=== PATIENT | female | born 1975 | race African-American/Black ===

== ENCOUNTER 2018-04-27 20:54 | Emergency (ER) | payer OTHER ==
[~2018-04-27] VITALS: Ht 165.1 cm; Wt 99.8 kg
[2018-04-27] MEDS ORDERED: PROMETHAZINE/C118 ML PO (22:33)
[2018-04-27] MEDS ORDERED: PROVENTIL HFA6.7 G1 INH (22:33)
[2018-04-27] MEDS ORDERED: PREDNISONE 20 M20 MG PO (22:33)
[2018-04-27 22:57] VITALS: BP 136/89
== END 2018-04-27 22:58 | disposition home or self-care (01) ==
LOC: ER 20:54
DX: J20.9 Acute bronchitis, unspecified (principal); Z88.0 Allergy status to penicillin; Z88.8 Allergy status to other drugs, medicaments and biological substances

== ENCOUNTER 2018-10-22 18:12 | Emergency (ER) | payer OTHER ==
[~2018-10-22] VITALS: Ht 165.1 cm; Wt 89.4 kg
[~2018-10-22 18:12] MED LIST: GLUCOPHAGE1000 MG PO; LIPITOR 10 MG10 M1 PO; NORVASC5 MG PO; PREDNISONE 20 M20 MG PO; PROMETH-CODEIN 65 ML PO; PROMETHAZINE/C118 ML PO; PROVENTIL HFA6.7 G1 INH; TESSALON PERLE100 MG PO
[2018-10-22] MEDS ORDERED: NORFLEX100 MG PO (19:37)
[2018-10-22] MEDS ORDERED: TESSALON PERLE100 MG PO (19:40)
[2018-10-22 19:54] VITALS: BP 189/97
== END 2018-10-22 19:55 | disposition home or self-care (01) ==
LOC: ER 18:12
DX: S16.1XXA Strain of muscle, fascia and tendon at neck level, initial encounter (principal); S46.811A Strain of other muscles, fascia and tendons at shoulder and upper arm level, right arm, initial encounter; J06.9 Acute upper respiratory infection, unspecified; I10 Essential (primary) hypertension; E10.9 Type 1 diabetes mellitus without complications; V89.2XXA Person injured in unspecified motor-vehicle accident, traffic, initial encounter; Y93.89 Activity, other specified; Y92.89 Other specified places as the place of occurrence of the external cause; Y99.8 Other external cause status

== ENCOUNTER 2018-11-18 16:08 | Emergency (ER) | payer OTHER ==
[~2018-11-18] VITALS: Ht 165.1 cm; Wt 81.7 kg
[~2018-11-18 16:08] MED LIST changes: +NORFLEX100 MG PO
[2018-11-18 16:29] VITALS: BP 189/107
[2018-11-18] MEDS ORDERED: NOVOLOG100 UNIT/1 SUBQ (16:35)
[2018-11-18] MEDS ORDERED: LANTUS100 UNIT/M SUBQ (16:36)
[2018-11-18] MEDS ORDERED: NAPROSYN500 MG PO (17:20)
[2018-11-18] MEDS ORDERED: NORFLEX100 MG PO (17:20)
== END 2018-11-18 18:06 | disposition home or self-care (01) ==
LOC: ER 16:08
DX: S16.1XXA Strain of muscle, fascia and tendon at neck level, initial encounter (principal); S29.012A Strain of muscle and tendon of back wall of thorax, initial encounter; E10.9 Type 1 diabetes mellitus without complications; I10 Essential (primary) hypertension; Z88.0 Allergy status to penicillin; Z88.6 Allergy status to analgesic agent; V89.2XXA Person injured in unspecified motor-vehicle accident, traffic, initial encounter; Y93.89 Activity, other specified; Y92.89 Other specified places as the place of occurrence of the external cause; Y99.8 Other external cause status

== ENCOUNTER 2018-12-23 19:34 | Emergency (ER) | payer OTHER ==
[~2018-12-23] VITALS: Ht 165.1 cm; Wt 105.2 kg
[~2018-12-23 19:34] MED LIST changes: +LANTUS100 UNIT/M SUBQ; +NAPROSYN500 MG PO; +NOVOLOG100 UNIT/1 SUBQ
[2018-12-23 20:38] LABS: HEMATOCRIT 43.3 % (37.0-47.0); HEMOGLOBIN 14.4 gm/dL (12.0-15.0); MCH 27.9 pg (26.0-34.0); MCHC 33.2 g/dL (28.0-37.0); RBC 5.16 mil/uL (4.20-5.00); RDW 13.5 % (10.5-14.5); WBC 7.7 thou/uL (4.0-11.0)
[2018-12-23 20:44] LABS: ANION GAP 9 mmol/L (7-16); BUN 11 mg/dL (7-18); CALCIUM 9.1 mg/dL (8.5-10.1); CHLORIDE 99 mmol/L (98-107); CO2 29 mmol/L (21-32); CREATININE 0.9 mg/dL (0.6-1.0); GLUCOSE 322 mg/dL (74-106); POTASSIUM 3.2 mmol/L (3.5-5.1); SODIUM 137 mmol/L (136-145)
[2018-12-23 20:54] LABS: TROPONIN-I <0.06 ng/mL (<0.06)
[2018-12-23] MEDS ORDERED: NORCO 10-325 T1 EACH PO (22:08)
[2018-12-23] MEDS ORDERED: CYCLOBENZAPRINE5 MG PO (22:08)
[2018-12-23 22:39] VITALS: BP 155/80
--- NOTE | 2018-12-24 08:14 | EKG ---
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: : 1975 Requested By: Nestor Wills Order Number: [id number] MD: Jose Armando Overton Measurements Intervals [place] Rate: 76 P: 29 ND: 163 QRS: 13 QRSD: 87 T: 73 QT: 422 QTc: 475 Interpretive Statements Sinus rhythm Borderline T wave abnormalities Baseline wander in lead(s) I No previous ECG available for comparison Electronically Signed On 12-24-2018 8:13:57 MEDICAL RECORDS TECH by Jose Armando Overton [email or web address] <ELECTRONICALLY SIGNED> By: Jose Armando Overton MD, [facility] 12/24/18 0813 56 56 Jose Armando Overton MD, FACC /EPI
== END 2018-12-23 22:40 | disposition home or self-care (01) ==
LOC: ER 19:34
PROVIDERS: Physician Assistant
DX: R07.89 Other chest pain (principal); M25.571 Pain in right ankle and joints of right foot; I10 Essential (primary) hypertension; E10.9 Type 1 diabetes mellitus without complications; Z88.6 Allergy status to analgesic agent; Z88.0 Allergy status to penicillin; V43.52XA Car driver injured in collision with other type car in traffic accident, initial encounter; Y92.410 Unspecified street and highway as the place of occurrence of the external cause; Y93.89 Activity, other specified; Y99.8 Other external cause status

== ENCOUNTER 2018-12-27 20:03 | Emergency (ER) | payer OTHER ==
[~2018-12-27] VITALS: Ht 165.1 cm; Wt 105.2 kg
[~2018-12-27 20:03] MED LIST changes: +CYCLOBENZAPRINE5 MG PO; +NORCO 10-325 T1 EACH PO
[2018-12-27 22:08] LABS: ANION GAP 10 mmol/L (7-16); BUN 11 mg/dL (7-18); CALCIUM 9.2 mg/dL (8.5-10.1); CHLORIDE 96 mmol/L (98-107); CO2 28 mmol/L (21-32); CREATININE 0.9 mg/dL (0.6-1.0); GLUCOSE 355 mg/dL (74-106); POTASSIUM 4.4 mmol/L (3.5-5.1); SODIUM 134 mmol/L (136-145)
[2018-12-27 22:17] LABS: SGOT 34 U/L (15-37); SGPT 12 U/L (30-65); TOTAL BILIRUBIN 0.5 mg/dL (<0.1-1.0); TOTAL PROTEIN 8.5 g/dL (6.4-8.2); TROPONIN-I <0.06 ng/mL (<0.06)
[2018-12-27 22:24] LABS: ALBUMIN 3.2 g/dL (3.4-5.0); MAGNESIUM 1.5 mg/dL (1.8-2.4)
[2018-12-27 22:51] LABS: ABSOLUTE NEUTROPHILS 5.1 thou/uL (1.4-8.2); BASOPHILS 1.5 % (0.0-2.0); EOSINOPHILS 2.5 % (0.0-3.0); HEMATOCRIT 39.5 % (37.0-47.0); HEMOGLOBIN 13.1 gm/dL (12.0-15.0); LYMPHOCYTES 36.1 % (24.0-44.0); MCH 27.5 pg (26.0-34.0); MCV 83.3 fL (80.0-100.0); MONOCYTES 6.3 % (1.0-8.0); PLATELET COUNT 284 thou/uL (150-400); POLYS 53.6 % (36.0-66.0); RBC 4.75 mil/uL (4.20-5.00); RDW 13.7 % (10.5-14.5); WBC 9.4 thou/uL (4.0-11.0)
[2018-12-28] MEDS ORDERED: PROAIR HFA8.5 GM INH (01:33)
[2018-12-28] MEDS ORDERED: LEVAQUIN 750 M750 MG PO (01:33)
[2018-12-28] MEDS ORDERED: NORCO 5-325 TA1 EACH PO (01:33)
[2018-12-28 01:55] VITALS: BP 163/91
--- NOTE | 2018-12-28 09:09 | EKG ---
[address] [place] [address] ELECTROCARDIOGRAM REPORT Name: CAITLIN AKBAROLLE Room #: DEP Paula#: [id number] ������������������ Admission: 12/27/18 ������������������ Attend Phys: Discharge: 12/28/18 ������������������ Date of : 71 Report #: [id number] ����������������������������������������������������������������� [id number] THIS REPORT FOR: //name// [facility] ED Test Date: 2018-12-27 Test Time: 20:42:42 Pat Name: MARILYN AKBAR Department: Room: Gender: F Radio Director: AVE : 1975 Requested By: Itz Brownlee Order Number: [id number] MD: Jose Armando Overton Measurements Intervals [place] Rate: 92 P: 4 AL: 177 QRS: 7 QRSD: 84 T: -31 QT: 393 QTc: 487 Interpretive Statements Sinus rhythm Small inferior Q waves Poor R wave progression Compared to ECG 12/23/2018 19:57:59 No significant change was found Electronically Signed On 12-28-2018 9:09:07 MEDICAL ORDERLY by Jose Armando Overton [email or web address] ��������������������������������������������� <ELECTRONICALLY SIGNED> ���������������������������������������� By: Jose Armando Overton MD, [facility] ��������������������������������������������� 12/28/18908 41 41 Jose Armando Overton MD, FACC /EPI
== END 2018-12-28 01:57 | disposition home or self-care (01) ==
LOC: ER 20:03
PROVIDERS: Emergency Medicine
DX: S20.211A Contusion of right front wall of thorax, initial encounter (principal); J18.9 Pneumonia, unspecified organism; E10.9 Type 1 diabetes mellitus without complications; I10 Essential (primary) hypertension; Z88.0 Allergy status to penicillin; Z88.6 Allergy status to analgesic agent; V89.2XXA Person injured in unspecified motor-vehicle accident, traffic, initial encounter; Y93.89 Activity, other specified; Y92.89 Other specified places as the place of occurrence of the external cause; Y99.8 Other external cause status

== ENCOUNTER 2019-02-02 18:21 | Emergency (ER) | payer OTHER ==
[~2019-02-02] VITALS: Ht 165.1 cm; Wt 102.5 kg
[~2019-02-02 18:21] MED LIST changes: +LEVAQUIN 750 M750 MG PO; +NORCO 5-325 TA1 EACH PO; +PROAIR HFA8.5 GM INH
[2019-02-02 19:51] LABS: ABSOLUTE NEUTROPHILS 3.7 thou/uL (1.4-8.2); BASOPHILS 1.7 % (0.0-2.0); EOSINOPHILS 1.8 % (0.0-3.0); HEMATOCRIT 38.7 % (37.0-47.0); HEMOGLOBIN 12.9 gm/dL (12.0-15.0); LYMPHOCYTES 44.3 % (24.0-44.0); MCH 27.6 pg (26.0-34.0); MCHC 33.3 g/dL (28.0-37.0); MCV 82.8 fL (80.0-100.0); MONOCYTES 7.3 % (1.0-8.0); PLATELET COUNT 320 thou/uL (150-400); POLYS 44.9 % (36.0-66.0); RBC 4.67 mil/uL (4.20-5.00); RDW 13.7 % (10.5-14.5); WBC 8.1 thou/uL (4.0-11.0)
[2019-02-02 20:00] LABS: ANION GAP 6 mmol/L (7-16); BUN 13 mg/dL (7-18); CALCIUM 9.2 mg/dL (8.5-10.1); CHLORIDE 101 mmol/L (98-107); CO2 27 mmol/L (21-32); CREATININE 0.9 mg/dL (0.6-1.0); GLUCOSE 301 mg/dL (74-106); POTASSIUM 3.8 mmol/L (3.5-5.1); SODIUM 134 mmol/L (136-145)
[2019-02-02 20:09] LABS: ALBUMIN 3.4 g/dL (3.4-5.0); MAGNESIUM 1.6 mg/dL (1.8-2.4); SGOT 13 U/L (15-37); SGPT 13 U/L (30-65); TOTAL BILIRUBIN 0.3 mg/dL (<0.1-1.0); TOTAL PROTEIN 7.7 g/dL (6.4-8.2); TROPONIN-I <0.06 ng/mL (<0.06)
[2019-02-02] MEDS ORDERED: DOXYCYCLINE 10100 MG PO (20:22)
[2019-02-02 21:10] LABS: URINE BILIRUBIN NEGATIVE (Negative); URINE BLOOD NEGATIVE (Negative); URINE CLARITY CLEAR; URINE COLOR YELLOW; URINE GLUCOSE-RANDOM* 2+ (Negative); URINE KETONES NEGATIVE (Negative); URINE LEUKOCYTES-REFLEX NEGATIVE (Negative); URINE NITRITE-REFLEX NEGATIVE (Negative); URINE PROTEIN (DIPSTICK) 1+ (Negative); URINE SPECIFIC GRAVITY 1.025 (1.005-1.035)
[2019-02-02 21:19] LABS: BACTERIA-REFLEX None Seen /HPF (None Seen); CASTS None Seen /LPF (None Seen); CRYSTALS None Seen /LPF (None Seen); MUCUS >6 Heavy strn/LPF (None Seen); SQUAMOUS >10 Many /LPF (0-3); URINE RBC 0-2 Rare /HPF (0-2); URINE WBC-REFLEX 0-5 Rare /HPF (0-5)
[2019-02-02 21:31] VITALS: BP 175/103
--- NOTE | 2019-02-03 08:41 | EKG ---
[facility] [place] [address] ELECTROCARDIOGRAM REPORT Name: CAITLIN AKBAROLLE Room #: DEP [facility] [id number] ������������������ Admission: 02/02/19 ������������������ Attend Phys: Discharge: 02/02/19 ������������������ Date of : 71 Report #: [id number] ����������������������������������������������������������������� [id number] THIS REPORT FOR: //name// 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 : 1975 Requested By: Leroy Marina Order Number: [id number] MD: Jose Armando Overton Measurements Intervals [place] Rate: 82 P: 20 [place]: 155 QRS: 7 QRSD: 83 T: -5 QT: 411 QTc: 480 Interpretive Statements Sinus rhythm Poor R wave progression Nonspecific ST and T wave abnormality Possible inferior infarct, old Compared to ECG 12/27/2018 20:42:42 no significant change was found Electronically Signed On 02-03-2019 8:41:31 CDT by Jose Armando Overton [email or web address] ��������������������������������������������� <ELECTRONICALLY SIGNED> ���������������������������������������� By: Jose Armando Overton MD, [facility] ��������������������������������������������� 02/03/19 0841 1904 1904 Jose Armando Overton MD, [facility] /EPI
== END 2019-02-02 21:34 | disposition home or self-care (01) ==
LOC: ER 18:21
PROVIDERS: Emergency Medicine
DX: J20.9 Acute bronchitis, unspecified (principal); E11.65 Type 2 diabetes mellitus with hyperglycemia; I10 Essential (primary) hypertension; Z88.0 Allergy status to penicillin; Z88.6 Allergy status to analgesic agent; Z77.22 Contact with and (suspected) exposure to environmental tobacco smoke (acute) (chronic)

== ENCOUNTER 2019-02-25 18:16 | Emergency (ER) | payer OTHER ==
[~2019-02-25] VITALS: Ht 165.1 cm; Wt 99.3 kg
[~2019-02-25 18:16] MED LIST changes: +DOXYCYCLINE 10100 MG PO
[2019-02-25] MEDS ORDERED: ZESTRIL10 MG PO (19:41)
[2019-02-25] MEDS ORDERED: HYDROCHLOROTHIA25 M2 PO (19:41)
[2019-02-25] MEDS ORDERED: CEFDINIR300 MG PO (20:40)
[2019-02-25] MEDS ORDERED: PROMETH-CODEIN 65 ML PO (20:40)
[2019-02-25 20:44] VITALS: BP 219/123
== END 2019-02-25 20:56 | disposition home or self-care (01) ==
LOC: ER 18:16
DX: J40 Bronchitis, not specified as acute or chronic (principal); H66.92 Otitis media, unspecified, left ear; E10.9 Type 1 diabetes mellitus without complications; I10 Essential (primary) hypertension; Z77.22 Contact with and (suspected) exposure to environmental tobacco smoke (acute) (chronic); Z88.0 Allergy status to penicillin; Z88.6 Allergy status to analgesic agent

== ENCOUNTER 2019-04-02 12:45 | Emergency (ER) | payer OTHER ==
[~2019-04-02] VITALS: Ht 165.1 cm; Wt 103.0 kg
[~2019-04-02 12:45] MED LIST changes: +CEFDINIR300 MG PO; +HYDROCHLOROTHIA25 M2 PO; +ZESTRIL10 MG PO
[2019-04-02] MEDS ORDERED: CEPACOL SORE T1 EAC8 PO (13:50)
[2019-04-02] MEDS ORDERED: CLEOCIN HCL150 MG PO (13:50)
[2019-04-02 14:04] VITALS: BP 177/106
== END 2019-04-02 14:05 | disposition home or self-care (01) ==
LOC: ER 12:45
DX: J03.90 Acute tonsillitis, unspecified (principal); E10.9 Type 1 diabetes mellitus without complications; I10 Essential (primary) hypertension; Z77.22 Contact with and (suspected) exposure to environmental tobacco smoke (acute) (chronic); Z88.0 Allergy status to penicillin; Z88.6 Allergy status to analgesic agent

== ENCOUNTER 2019-05-06 02:08 | Emergency (ER) | payer OTHER ==
[~2019-05-06] VITALS: Ht 165.1 cm; Wt 100.7 kg
[~2019-05-06 02:08] MED LIST changes: +CEPACOL SORE T1 EAC8 PO; +CLEOCIN HCL150 MG PO
[2019-05-06] MEDS ORDERED: ZPAK PO (03:22)
[2019-05-06] MEDS ORDERED: NYAMYC15 GM TOP (03:22)
[2019-05-06 03:46] VITALS: BP 200/110
== END 2019-05-06 03:50 | disposition home or self-care (01) ==
LOC: ER 02:08
DX: J04.0 Acute laryngitis (principal); J20.9 Acute bronchitis, unspecified; B37.2 Candidiasis of skin and nail; E10.9 Type 1 diabetes mellitus without complications; I10 Essential (primary) hypertension; Z88.0 Allergy status to penicillin; Z88.6 Allergy status to analgesic agent; Z77.22 Contact with and (suspected) exposure to environmental tobacco smoke (acute) (chronic)

== ENCOUNTER 2019-05-24 08:36 | Emergency (ER) | payer OTHER ==
[~2019-05-24] VITALS: Ht 165.1 cm; Wt 100.7 kg
[~2019-05-24 08:36] MED LIST changes: +NYAMYC15 GM TOP; +ZPAK PO
[2019-05-24] MEDS ORDERED: TRAMADOL 50 MG50 MG PO (10:12)
[2019-05-24] MEDS ORDERED: ACETAMINOPHEN-1 EAC1 PO (10:21)
[2019-05-24 10:30] VITALS: BP 181/86
== END 2019-05-24 10:30 | disposition home or self-care (01) ==
LOC: ER 08:36
DX: S93.491A Sprain of other ligament of right ankle, initial encounter (principal); S63.591A Other specified sprain of right wrist, initial encounter; M25.561 Pain in right knee; E10.9 Type 1 diabetes mellitus without complications; I10 Essential (primary) hypertension; Z77.22 Contact with and (suspected) exposure to environmental tobacco smoke (acute) (chronic); Z88.6 Allergy status to analgesic agent; Z88.0 Allergy status to penicillin; W01.0XXA Fall on same level from slipping, tripping and stumbling without subsequent striking against object, initial encounter; Y92.009 Unspecified place in unspecified non-institutional (private) residence as the place of occurrence of the external cause; Y93.89 Activity, other specified; Y99.8 Other external cause status

== ENCOUNTER 2019-10-20 22:53 | Emergency (ER) | payer OTHER ==
[~2019-10-20] VITALS: Ht 165.1 cm; Wt 100.2 kg
[~2019-10-20 22:53] MED LIST changes: +ACETAMINOPHEN-1 EAC1 PO; +TRAMADOL 50 MG50 MG PO
[2019-10-20 22:54] VITALS: BP 182/102
[2019-10-20] MEDS ORDERED: PREDNISONE 20 M20 MG PO (23:59)
== END 2019-10-21 00:04 | disposition home or self-care (01) ==
LOC: ER 22:53
DX: J45.901 Unspecified asthma with (acute) exacerbation (principal); J06.9 Acute upper respiratory infection, unspecified; E10.9 Type 1 diabetes mellitus without complications; I10 Essential (primary) hypertension; Z88.6 Allergy status to analgesic agent; Z88.0 Allergy status to penicillin; Z79.899 Other long term (current) drug therapy; Z79.4 Long term (current) use of insulin

== ENCOUNTER 2020-06-16 16:31 | Emergency (ER) | payer OTHER ==
[~2020-06-16] VITALS: Ht 162.6 cm; Wt 100.2 kg
[2020-06-16] MEDS ORDERED: NORCO 5-325 TA1 EAC2 PO (19:23)
[2020-06-16 19:43] VITALS: BP 191/97
== END 2020-06-16 19:36 | disposition home or self-care (01) ==
LOC: ER 16:31
DX: S01.81XA Laceration without foreign body of other part of head, initial encounter (principal); M25.561 Pain in right knee; I10 Essential (primary) hypertension; E10.9 Type 1 diabetes mellitus without complications; Z79.4 Long term (current) use of insulin; Z79.899 Other long term (current) drug therapy; Z88.0 Allergy status to penicillin; Z88.6 Allergy status to analgesic agent; Z88.8 Allergy status to other drugs, medicaments and biological substances; W10.1XXA Fall (on)(from) sidewalk curb, initial encounter; Y93.89 Activity, other specified; Y92.89 Other specified places as the place of occurrence of the external cause; Y99.8 Other external cause status

== ENCOUNTER 2020-06-25 02:18 | Emergency (ER) | payer OTHER ==
[~2020-06-25] VITALS: Ht 162.6 cm; Wt 96.2 kg
[~2020-06-25 02:18] MED LIST changes: +NORCO 5-325 TA1 EAC2 PO
[2020-06-25 03:54] LABS: ABSOLUTE NEUTROPHILS 4.7 thou/uL (1.4-8.2); BASOPHILS 1.4 % (0.0-2.0); EOSINOPHILS 3.7 % (0.0-3.0); HEMATOCRIT 41.2 % (37.0-47.0); HEMOGLOBIN 13.9 gm/dL (12.0-15.0); LYMPHOCYTES 38.6 % (24.0-44.0); MCH 28.2 pg (26.0-34.0); MCHC 33.6 g/dL (28.0-37.0); MONOCYTES 6.2 % (1.0-8.0); PLATELET COUNT 318 thou/uL (150-400); POLYS 50.1 % (36.0-66.0); RBC 4.91 mil/uL (4.20-5.00); RDW 13.8 % (10.5-14.5); WBC 9.5 thou/uL (4.0-11.0)
[2020-06-25 03:56] LABS: ANION GAP 8 mmol/L (7-16); BUN 12 mg/dL (7-18); CALCIUM 8.8 mg/dL (8.5-10.1); CHLORIDE 102 mmol/L (98-107); CO2 28 mmol/L (21-32); CREATININE 1.1 mg/dL (0.6-1.0); GLUCOSE 308 mg/dL (74-106); POTASSIUM 3.7 mmol/L (3.5-5.1); SODIUM 138 mmol/L (136-145)
[2020-06-25 04:06] LABS: ALBUMIN 3.3 g/dL (3.4-5.0); SGOT 8 U/L (15-37); SGPT 12 U/L (30-65); TOTAL BILIRUBIN 0.3 mg/dL (0.2-1.0); TOTAL PROTEIN 7.8 g/dL (6.4-8.2); TROPONIN-I <0.06 ng/mL (<0.06)
[2020-06-25 04:35] VITALS: BP 189/108
[2020-06-25] MEDS ORDERED: DOXYCYCLINE 10100 MG PO (04:40)
--- NOTE | 2020-06-26 16:01 | EKG ---
[facility] [place] [address] ELECTROCARDIOGRAM REPORT Name: CAITLIN AKBAROLLE Room #: DEP [facility]#: [id number] Admission: 06/25/20 Attend Phys: Discharge: 06/25/20 Date of : 71 Report #: [id number] THIS REPORT FOR: cc: LORENA - Gina family physician/PCP FAM - Gina family physician/PCP Brodie Bullock MD ~ THIS REPORT FOR: //name// [facility] ED Test Date: 2020-06-25 Test Time: 03:10:20 Pat Name: MARILYN AKBAR Department: Room: Gender: F Radio Maintainer: gina : 1975 Requested By: Elton Bang Order Number: [id number] MD: Brodie Bullock Measurements Intervals [place] Rate: 68 P: 28 [place]: 172 QRS: 1 QRSD: 88 T: 10 QT: 441 QTc: 470 Interpretive Statements Sinus rhythm Probable left atrial enlargement Probable left ventricular hypertrophy Inferior infarct, old Anterior Q waves, possibly due to LVH Compared to ECG 02/02/2019 19:04:13 Electronically Signed On 06-26-2020 16:01:32 CDT by Brodie Bullock [email or web address] <ELECTRONICALLY SIGNED> By: Brodie Bullock MD 06/26/20 1601 Brodie Bullock MD /EPI
== END 2020-06-25 05:02 | disposition home or self-care (01) ==
LOC: ER 02:18
PROVIDERS: Emergency Medicine
DX: K13.0 Diseases of lips (principal); R05 Cough; Z20.828 Contact with and (suspected) exposure to other viral communicable diseases; E10.9 Type 1 diabetes mellitus without complications; I10 Essential (primary) hypertension; Z86.018 Personal history of other benign neoplasm; Z79.899 Other long term (current) drug therapy; Z79.4 Long term (current) use of insulin; Z88.6 Allergy status to analgesic agent; Z88.0 Allergy status to penicillin; Z88.8 Allergy status to other drugs, medicaments and biological substances

== ENCOUNTER 2020-08-14 05:39 | Inpatient (IN) | payer OTHER ==
[~2020-08-14] VITALS: Ht 165.1 cm; Wt 96.2 kg
[2020-08-14 05:43] VITALS: BP 149/92
[2020-08-14 06:33] LABS: ABSOLUTE NEUTROPHILS 3.8 thou/uL (1.4-8.2); EOSINOPHILS 2.7 % (0.0-3.0); HEMATOCRIT 39.1 % (37.0-47.0); HEMOGLOBIN 13.2 gm/dL (12.0-15.0); LYMPHOCYTES 43.4 % (24.0-44.0); MCHC 33.8 g/dL (28.0-37.0); MONOCYTES 7.9 % (1.0-8.0); PLATELET COUNT 283 thou/uL (150-400); RBC 4.72 mil/uL (4.20-5.00); RDW 13.8 % (10.5-14.5); WBC 8.5 thou/uL (4.0-11.0)
[2020-08-14 06:48] LABS: APTT 29.1 Seconds (24.5-32.8); PROTIME 10.3 Seconds (9.3-11.4)
[2020-08-14 09:09] LABS: AMP/METHAMP Negative (Negative); BARBITURATES Negative (Negative); BENZODIAZEPINES POSITIVE (Negative); COCAINE Negative (Negative); METHADONE Negative (Negative); OPIATES POSITIVE (Negative); PCP Negative (Negative)
[2020-08-14 09:20] LABS: ALBUMIN 2.9 g/dL (3.4-5.0); ANION GAP 7 mmol/L (7-16); BUN 11 mg/dL (7-18); CALCIUM 7.3 mg/dL (8.5-10.1); CHLORIDE 106 mmol/L (98-107); CO2 27 mmol/L (21-32); CREATININE 1.1 mg/dL (0.6-1.0); GLUCOSE 298 mg/dL (74-106); MAGNESIUM 1.5 mg/dL (1.8-2.4); SGOT 9 U/L (15-37); SGPT 12 U/L (30-65); SODIUM 140 mmol/L (136-145); TOTAL BILIRUBIN 0.1 mg/dL (0.2-1.0); TOTAL PROTEIN 6.8 g/dL (6.4-8.2); TROPONIN-I <0.06 ng/mL (<0.06)
[2020-08-14 09:22] LABS: POTASSIUM 2.8 mmol/L (3.5-5.1)
--- NOTE | 2020-08-14 10:56 | EKG ---
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: JAYDEN : 1975 Requested By: Leroy Marina Order Number: [id number] MD: Kervin Bingham Measurements Intervals [place] Rate: 75 P: 35 [place]: 168 QRS: 19 QRSD: 95 T: -11 QT: 424 QTc: 474 Interpretive Statements Sinus rhythm Probable left atrial enlargement Left ventricular hypertrophy Baseline wander in lead(s) V1 Compared to ECG 06/25/2020 03:10:20 Q waves no longer present Myocardial infarct finding still present Electronically Signed On 08-14-2020 10:56:18 CDT by Kervin Bingham [email or web address] <ELECTRONICALLY SIGNED> By: Kervin Bingham MD, FACC 08/14/20 1056 0849 0849 Kervin Bingham MD, FACC /EPI
[2020-08-14 12:26] VITALS: BP 170/101
[2020-08-14 12:38] VITALS: BP 171/106
--- NOTE | 2020-08-14 12:44 | 2DMMODE ---
[facility] [address] [place] [address] 2 D/M-MODE ECHOCARDIOGRAM Name: MARILYN AKBAR Room #: 170-9 ADM IN M.R.#: [id number] Admission: 08/14/20 Attend Phys: Meche Robles Discharge: Date of : 71 Report #: [id number] THIS REPORT FOR: cc: FAM - No family physician/PCP FAM - No family physician/PCP Sylvester Wright MD ~ APPROVED REPORT Study performed: 08/14/2020 11:48:03 EXAM: Comprehensive 2D, Doppler, and color-flow Echocardiogram Patient Location: ER Status: routine BSA: 2.03 HR: 71 bpm BP: 165/103 mmHg Rhythm: NSR Other Information Study Quality: Good/flat on back Indications Chest Pain Hx: ME, HTN, DM. 2D Dimensions IVSd: 15.34 (7-11mm) LVOT Diam: 20.00 (18-24mm) LVDd: 39.30 mm PWd: 15.00 (7-11mm) Ascending Ao: 34.01 (22-36mm) LVDs: 28.91 (25-40mm) Aortic Root: 35.00 mm Volumes Left Atrial Volume (Systole) Single Plane 4CH: 42.68 mL Single Plane 2CH: 33.82 mL LA ESV Index: 19.00 mL/m2 Aortic Valve AoV Peak Reza.: 1.53 m/s AO Peak Gr.: 9.34 mmHg LVOT Max P.63 mmHg LVOT Max V: 0.95 m/s CARLOS ALBERTO Vmax: 1.86 cm2 [facility] [address] [place] [address] 2 D/M-MODE ECHOCARDIOGRAM Name: NAOMIEMARILYN Room #: 170-9 ADM IN M.R.#: [id number] Admission: 08/14/20 Attend Phys: Meche Saini Discharge: Date of : 71 Report #: [id number] Mitral Valve E/A Ratio: 0.8 MV Decel. Time: 188.67 ms MV E Max Reza.: 0.66 m/s MV A Reza.: 0.86 m/s MV PHT: 54.71 ms IVRT: 93.43 ms Pulmonary Valve PV Peak Reza.: 0.76 m/s PV Peak Gr.: 2.30 mmHg Pulmonary Vein P Vein S: 0.60 m/s P Vein A: 0.21 m/s P Vein D: 0.30 m/s P Vein A Dur.: 120.0 msec P Vein S/D Ratio: 2.00 Tricuspid Valve TR Peak Reza.: 1.98 m/s RAP Estimate: 5.00 mmHg TR Peak Gr.: 16.00 mmHg PA Pressure: 21.00 mmHg Left Ventricle The left ventricle is normal size. There is normal LV segmental wall motion. Moderate concentric left ventricular hypertrophy. Left ventricular systolic function is normal. LVEF is 65%. Mild diastolic dysfunction is present. Right Ventricle The right ventricle is normal size. The right ventricular systolic function is normal. Atria The left atrium size is normal. The right atrium size is normal. Aortic Valve The aortic valve is normal in structure. Mild to moderate aortic regurgitation. There is no aortic valvular stenosis. Mitral Valve The mitral valve is normal in structure. There is no mitral valve regurgitation noted. No evidence of mitral valve stenosis. Tricuspid Valve The tricuspid valve is normal in structure. Trace tricuspid regurgitation. Estimated PAP is 20-25mmHg. [facility] [place] [address] 2 D/M-MODE ECHOCARDIOGRAM Name: MARILYN AKBAR Room #: 170-9 ADM IN M.R.#: [id number] Admission: 08/14/20 Attend Phys: Meche Saini Discharge: Date of : 71 Report #: [id number] Pulmonic Valve The pulmonary valve is normal in structure. Trace pulmonic regurgitation. Great Vessels The aortic root is normal in size. The ascending aorta is normal in size. IVC is normal in size and collapses >50% with inspiration. Pericardium There is no pericardial effusion. <Conclusion> The left ventricle is normal size. Moderate concentric left ventricular hypertrophy. Left ventricular systolic function is normal. Mild diastolic dysfunction is present. The right ventricle is normal size. The left atrium size is normal. Mild to moderate aortic regurgitation. There is no mitral valve regurgitation noted. Trace tricuspid regurgitation. Estimated PAP is 20-25mmHg. <ELECTRONICALLY SIGNED> By: Sylvester Wright MD 08/14/20 1243 42 42 Sylvester Wright MD /INF
[2020-08-14 15:55] LABS: CHOLESTEROL 163 mg/dL (<200); HDL CHOLESTEROL 34 mg/dL (>40); LDL CHOLESTEROL 110 mg/dL (<100); TC:HDL 4.8 Ratio (Not establshd); TRIGLYCERIDE 97 mg/dL (<150); VLDL 19 mg/dL (<40)
[2020-08-14 16:31] VITALS: BP 179/93
--- NOTE | 2020-08-14 16:50 | EKG ---
[facility] [place] [address] ELECTROCARDIOGRAM REPORT Name: CAITLIN AKBAROLLE Room #: 205-P ADM IN M.R.#: [id number] Admission: 08/14/20 Attend Phys: Meche Robles Discharge: Date of : 71 Report #: [id number] THIS REPORT FOR: cc: LORENA Fuentes family physician/PCP LORENA - Gina family physician/PCP Kervin Bingham MD [facility] THIS REPORT FOR: //name// [facility] ED Test Date: 2020-08-14 Test Time: 06:17:29 Pat Name: MARILYN AKBAR Department: Room: [facility] Gender: F 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 : 1975 Requested By: Leroy Marina Order Number: [id number] MD: Kervin Bingham Measurements Intervals [place] Rate: 84 P: 21 RI: 175 QRS: 8 QRSD: 89 T: -16 QT: 417 QTc: 493 Interpretive Statements Sinus rhythm Probable left atrial enlargement Inferior infarct, old Compared to ECG 06/25/2020 03:10:20 Left ventricular hypertrophy no longer present Myocardial infarct finding still present Electronically Signed On 08-14-2020 16:50:32 CDT by Kervin Bingham [email or web address] <ELECTRONICALLY SIGNED> By: Kervin Bingham MD, FAC 08/14/20 1650 6 6 eKrvin Bingham MD, [facility] /EPI
--- NOTE | 2020-08-14 17:17 | NUR ---
ASSUMED CARE OF PT AT APPROX 1330 FROM ER D/T CHEST PAIN. ADMISSION ORDERS AND INSTRUCTIONS COMPLETE. ASSESSMENT CHARTED. MEDS GIVEN PER MAR. PT A&OX4. PLAN FOR NM STRESS TEST IN MORNING. NPO AFTER MIDNIGHT. WILL CONTINUE TO MONITOR AND FOLLOW POC.
[2020-08-14 20:00] VITALS: BP 160/78
[2020-08-14 20:58] VITALS: BP 167/98
[2020-08-15 00:15] VITALS: BP 145/85
[2020-08-15 04:00] VITALS: BP 175/94
--- NOTE | 2020-08-15 04:54 | NUR ---
[facility] 1900. PT STABLE. BP RUNS HIGH AND BLOOD SUGAR IS MILDLY CONTROLLED. INTERMITTENT CHEST PAIN NOTED. MORPHINE FOR RELIEF. NO DISTRESS NTED THROUGH THE NIGHT. SR ON MONITOR. ASSESSMENT CHARTED, PROGRESSING WELL WIHT POC. PLAN IS STRESS TEST TODAY PER CARDIOLOGY. WILL CONTINUE TO MONITOR AND FOLLOW WITH POC
[2020-08-15 06:30] LABS: CALCIUM 8.1 mg/dL (8.5-10.1); CREATININE 1.1 mg/dL (0.6-1.0)
[2020-08-15 07:52] VITALS: BP 170/92
[2020-08-15 11:39] VITALS: BP 167/95
[2020-08-15] MEDS ORDERED: LANTUS SUBQ (15:46)
[2020-08-15] MEDS ORDERED: BENICAR20 MG PO (15:46)
[2020-08-15] MEDS ORDERED: CARVEDILOL25 MG PO (15:46)
[2020-08-15] MEDS ORDERED: HUMALOG100 UNIT/1 SUBQ (15:49)
--- NOTE | 2020-08-15 15:59 | NUR ---
CONSULT [id number] COMPLETED BY THIS SPEECH THERAPY ASSISTANT. PATIENT WAS APPRECIATIVE OF VISIT.
[2020-08-15 16:01] VITALS: BP 167/95
--- NOTE | 2020-08-15 16:33 | NUR ---
ASSUMED CARE OF PT AT SHIFT CHANGE. ASSESSMENT CHARTED. MEDS GIVEN PER JAN. PT A&OX4. C/O CHEST PAIN, HEADACHE. DECLINED MEDS. STRESS TEST COMPLETE, SHOWING NO ISCHEMIA. DISCHARGE ORDERS COMPLETE. TELE AND IV WILL BE DC'D WHEN HER RIDE ARRIVES.
== END 2020-08-15 17:53 | disposition home or self-care (01) | DRG 313 ==
LOC: ER 05:39 → 2N 10:16 → EROBS 10:16 → 2N 13:23
PROVIDERS: Emergency Medicine; Nurse Practitioner Family; ADMIT Hospitalist; ATTEND Hospitalist
DX: R07.89 Other chest pain (principal); F19.10 Other psychoactive substance abuse, uncomplicated; I10 Essential (primary) hypertension; E87.6 Hypokalemia; E83.42 Hypomagnesemia; E66.9 Obesity, unspecified; J45.909 Unspecified asthma, uncomplicated; F41.9 Anxiety disorder, unspecified; I08.3 Combined rheumatic disorders of mitral, aortic and tricuspid valves; E11.9 Type 2 diabetes mellitus without complications; F32.9 Major depressive disorder, single episode, unspecified; Z79.4 Long term (current) use of insulin; Z79.899 Other long term (current) drug therapy; I25.2 Old myocardial infarction; Z68.35 Body mass index [BMI] 35.0-35.9, adult
CPT/HCPCS: 10081

== ENCOUNTER 2020-08-27 02:18 | Emergency (ER) | payer OTHER ==
[~2020-08-27] VITALS: Ht 165.1 cm; Wt 96.2 kg
[~2020-08-27 02:18] MED LIST changes: +BENICAR20 MG PO; +CARVEDILOL25 MG PO; +HUMALOG100 UNIT/1 SUBQ; +LANTUS SUBQ
[2020-08-27 03:33] LABS: ABSOLUTE NEUTROPHILS 4.5 thou/uL (1.4-8.2); BASOPHILS 1.2 % (0.0-2.0); EOSINOPHILS 1.4 % (0.0-3.0); HEMATOCRIT 40.4 % (37.0-47.0); HEMOGLOBIN 13.4 gm/dL (12.0-15.0); LYMPHOCYTES 35.7 % (24.0-44.0); MCH 27.7 pg (26.0-34.0); MCHC 33.1 g/dL (28.0-37.0); MCV 83.9 fL (80.0-100.0); MONOCYTES 6.6 % (1.0-8.0); PLATELET COUNT 289 thou/uL (150-400); POLYS 55.1 % (36.0-66.0); RBC 4.81 mil/uL (4.20-5.00); RDW 13.6 % (10.5-14.5); WBC 8.1 thou/uL (4.0-11.0)
[2020-08-27 03:55] LABS: CALCIUM 8.3 mg/dL (8.5-10.1); CREATININE 0.7 mg/dL (0.6-1.0); POTASSIUM 4.1 mmol/L (3.5-5.1)
[2020-08-27 03:55] LABS: URINE BILIRUBIN NEGATIVE (Negative); URINE BLOOD NEGATIVE (Negative); URINE CLARITY CLEAR; URINE COLOR YELLOW; URINE GLUCOSE-RANDOM* 2+ (Negative); URINE KETONES NEGATIVE (Negative); URINE LEUKOCYTES-REFLEX NEGATIVE (Negative); URINE NITRITE-REFLEX NEGATIVE (Negative); URINE PROTEIN (DIPSTICK) TRACE (Negative); URINE SPECIFIC GRAVITY 1.025 (1.005-1.035); URINE UROBILINOGEN 0.2 E.U./dl (0.2-1.0)
[2020-08-27 04:00] LABS: ALBUMIN 3.2 g/dL (3.4-5.0); TOTAL BILIRUBIN 0.3 mg/dL (0.2-1.0); TOTAL PROTEIN 6.9 g/dL (6.4-8.2)
[2020-08-27 04:03] LABS: AMP/METHAMP Negative (Negative); BARBITURATES Negative (Negative); BENZODIAZEPINES Negative (Negative); COCAINE Negative (Negative); METHADONE Negative (Negative); OPIATES Negative (Negative); PCP Negative (Negative)
[2020-08-27] MEDS ORDERED: SENNA-DOCUSATE1 EAC1 PO (06:11)
[2020-08-27] MEDS ORDERED: PHENERGAN 25 MG25 M1 PO (06:11)
[2020-08-27 06:49] VITALS: BP 169/78
--- NOTE | 2020-08-27 08:55 | EKG ---
[facility] [place] [address] ELECTROCARDIOGRAM REPORT Name: MARILYN AKBAR Room #: DEP [facility]#: [id number] Admission: 08/27/20 Attend Phys: Discharge: 08/27/20 Date of : 71 Report #: [id number] THIS REPORT FOR: cc: FAM - No family physician/PCP FAM - No family physician/PCP Jose Armando Overton MD [facility] THIS REPORT FOR: //name// [facility] ED Test Date: 2020-08-27 Test Time: 02:35:20 Pat Name: MARILYN AKBAR Department: Room: Gender: F Level Designer: STOLED : 1975 Requested By: Sena Hayes Order Number: [id number] MD: Jose Armando Overton Measurements Intervals [place] Rate: 86 P: 19 [place]: 161 QRS: 15 QRSD: 86 T: -7 QT: 395 QTc: 473 Interpretive Statements Sinus rhythm Possible inferior infarct, old Probable anterior infarct, old Baseline wander in lead(s) V5 Compared to ECG 08/14/2020 08:49:33 No significant change was found Electronically Signed On 08-27-2020 8:55:04 CDT by Jose Armando Overton [email or web address] <ELECTRONICALLY SIGNED> By: Jose Armando Overton MD, FAC 08/27/20 0855 0235 0235 Jose Armando Overton MD, [facility] /EPI
== END 2020-08-27 06:49 | disposition home or self-care (01) ==
LOC: ER 02:18
PROVIDERS: Emergency Medicine
DX: K59.00 Constipation, unspecified (principal); R11.2 Nausea with vomiting, unspecified; I10 Essential (primary) hypertension; E10.9 Type 1 diabetes mellitus without complications; Z79.899 Other long term (current) drug therapy; Z88.0 Allergy status to penicillin; Z88.6 Allergy status to analgesic agent; Z88.5 Allergy status to narcotic agent; Z88.8 Allergy status to other drugs, medicaments and biological substances

== ENCOUNTER 2021-05-25 11:52 | Emergency (ER) | payer OTHER ==
[~2021-05-25] VITALS: Ht 165.1 cm; Wt 91.2 kg
--- NOTE | ~2021-05-25 | EMS ---
[address] [address] EMS Patient Care Report Name: MARILYN AKBAR Room #: DEP LI Mitchell#: [id number] Admission: 05/25/21 Attend Phys: Discharge: 05/25/21 Date of : 71 Report #: [id number] THIS REPORT FOR: //name// Report Transmitted: 05/25/2021 17:01 EMS Care Summary [place], [place] Incident [id number] @ 05/25/2021 11:17 Incident Location [address] [place], [place] [id number] Patient MARILYN AKBAR Female, 46 Years 1975 Patient Address [address] [place], [place] [id number] Patient History Other,Asthma,Behavioral/Psychiatric Disorder,Diabetes,Hypertension (HTN),Stroke/CVA,TIA,Cardiac - Stent,Type 2 Diabetes, Patient Allergies Aspirin,Penicillin allergy,Tramadol, Patient Medications Carvedilol, Trulicity, Lisinopril, Insulin, Xanax, Albuterol, Coreg, Metoprolol, Percocet, Metformin, Chief Complaint I don't feel well Disposition Transported No Lights/[place] Dispatch Reason Sick Person Transported To [address] [address] EMS Patient Care Report Name: MARILYN AKBAR Room #: DEP Paula#: [id number] Admission: 05/25/21 Attend Phys: Discharge: 05/25/21 Date of : 71 Report #: [id number] Called for a sick. Upon arrival, pt was walking towards the ambulance where she climbed in and sat down w/o incident. Pt c/o headache: 3 days nausea: today weakness: today cough: 3 days body aches: today She requested transport to [facility] ER for further eval & tx. Pt had on her mask. Vitals obtained. Attempt IV, d-stick obtained. Vitals repeated. En route: no significant changes. RR to the ER. Arrived: pt taken to ER Covid triage area. Pt care & report to ER staff. Initial Vitals @11:40P: 78,CO: 9,SpO2: 98, @11:30P: 84,R: 16,BP: 162/118,Pain: 4/10,GCS: 15,Glucose: 151,CO: 5,SpO2: 99,Revised Trauma: 12, @11:28P: 80,R: 16,BP: 171/114,Pain: 4/10,GCS: 15,CO: 5,SpO2: 97,Revised Trauma: 12, Assessments @11:25MENTAL:Person Oriented,Time Oriented,Event Oriented,Place Oriented,SKIN:HEENT:LUNG SOUNDS:General: Nausea,ABDOMEN:General: Nausea,PELVIS//GI:No Abnormalities,EXTREMITIES:Left Arm: No Abnormalities,Right Arm: No Abnormalities,Left Leg: No Abnormalities,Right Leg: No Abnormalities,PULSE:Radial: 2+ Normal,NEURO:No Abnormalities, Impression Generalized Weakness Procedures @11:25ALS AssessmentResponse: UnchangedSucceeded@11:40Saline Lock cc (18 ga) Site: Forearm-LeftResponse: UnchangedFailed@11:45StretcherResponse: Unchanged Timeline 11:15,Call Received 11:15,Dispatch Notified 11:17,Dispatched 11:18,En Route 11:24,On Scene 11:25,At Patient 11:25,ALS Assessment,Response: UnchangedSucceeded, 11:28,BP: 171/114 M,PULSE: 80,RR: 16 R,SPO2: 97 Ox,ETCO2: ,BG: ,PAIN: 4,GCS: 15, 11:30,BP: 162/118 M,PULSE: 84,RR: 16 R,SPO2: 99 Ox,ETCO2: ,B,PAIN: 4,GCS: 15, 11:38,Depart Scene [address] [address] EMS Patient Care Report Name: MARILYN AKBAR Room #: DEP LI Mitchell#: [id number] Admission: 05/25/21 Attend Phys: Discharge: 05/25/21 Date of : 71 Report #: [id number] 11:40,BP: / M,PULSE: 78,RR: R,SPO2: 98 Ox,ETCO2: ,BG: ,PAIN: ,GCS: , 11:40,Saline Lock cc 18 ga Site: Forearm-Left,Response: UnchangedFailed, 11:45,Stretcher,Response: Unchanged 11:49,At Destination 12:22,Call Closed Disclaimer v1.1 Copyright 2020 [employer] This EMS Care Summary contains data elements from the applicable legal record (which may be displayed differently). It is designed to provide pertinent information for the following purposes: continuity of care, clinical quality, and state data reporting. The complete legal record is available to ED staff and administrators of the receiving hospital in [employer]'s Patient Tracker. All data is provided "as is."
[~2021-05-25 11:52] MED LIST changes: +PHENERGAN 25 MG25 M1 PO; +SENNA-DOCUSATE1 EAC1 PO
[2021-05-25 12:47] LABS: ABSOLUTE NEUTROPHILS 3.9 thou/uL (1.4-8.2); EOSINOPHILS 1.6 % (0.0-3.0); HEMATOCRIT 35.9 % (37.0-47.0); HEMOGLOBIN 11.9 gm/dL (12.0-15.0); LYMPHOCYTES 36.2 % (24.0-44.0); MCH 27.9 pg (26.0-34.0); MCHC 33.1 g/dL (28.0-37.0); MCV 84.4 fL (80.0-100.0); MONOCYTES 7.3 % (1.0-8.0); PLATELET COUNT 276 thou/uL (150-400); POLYS 53.9 % (36.0-66.0); RBC 4.25 mil/uL (4.20-5.00); RDW 14.4 % (10.5-14.5); WBC 7.2 thou/uL (4.0-11.0)
[2021-05-25 12:58] LABS: ANION GAP 9 mmol/L (7-16); BUN 16 mg/dL (7-18); CALCIUM 8.5 mg/dL (8.5-10.1); CHLORIDE 105 mmol/L (98-107); CO2 26 mmol/L (21-32); CREATININE 1.3 mg/dL (0.6-1.0); GLUCOSE 186 mg/dL (74-106); POTASSIUM 3.6 mmol/L (3.5-5.1); SODIUM 140 mmol/L (136-145)
[2021-05-25 13:07] LABS: TROPONIN-I <0.06 ng/mL (<0.06)
[2021-05-25] MEDS ORDERED: TESSALON PERLE100 MG PO (13:50)
[2021-05-25] MEDS ORDERED: ONDANSETRON HCL4 M2 PO (13:50)
[2021-05-25 14:08] VITALS: BP 135/89
--- NOTE | 2021-05-26 14:32 | EKG ---
[facility] [place] [address] ELECTROCARDIOGRAM REPORT Name: MARILYN AKBAR [id number] Admission: 05/25/21 Attend Phys: Discharge: 05/25/21 Date of : 71 Report #: [id number] [facility] ED Test Date: 2021-05-25 Test Time: 12:22:29 Pat Name: MARILYN AKBAR Department: Room: Gender: F In House Cra: : 1975 Requested By: Yevgeniy Hung Order Number: [id number] MD: Jose Armando Overton Measurements Intervals [place] Rate: 79 P: 19 [place]: 168 QRS: -23 QRSD: 92 T: 195 QT: 425 QTc: 488 Interpretive Statements Sinus rhythm Abnormal R-wave progression, late transition Left ventricular hypertrophy Inferior infarct, age indeterminate Lateral leads are also involved Compared to ECG 08/27/2020 02:35:20 Lateral T wave abnormality is more pronounced Electronically Signed On 05-26-2021 14:32:30 CDT by Jose Armando Overton [email or web address] <ELECTRONICALLY SIGNED> By: Jose Armando Overton MD, [facility] 05/26/21 1432 1222 1222 oJse Armando Overton MD, [facility] /EPI
== END 2021-05-25 14:11 | disposition home or self-care (01) ==
LOC: ER 11:52
PROVIDERS: Nurse Practitioner
DX: R51.9 Headache, unspecified (principal); R53.83 Other fatigue; R11.0 Nausea; E10.9 Type 1 diabetes mellitus without complications; I10 Essential (primary) hypertension; F41.9 Anxiety disorder, unspecified; F32.9 Major depressive disorder, single episode, unspecified; Z72.0 Tobacco use; Z79.899 Other long term (current) drug therapy; Z88.6 Allergy status to analgesic agent; Z88.1 Allergy status to other antibiotic agents; Z88.0 Allergy status to penicillin; Z20.822 Contact with and (suspected) exposure to COVID-19

== ENCOUNTER 2021-05-31 06:30 | Emergency (ER) | payer OTHER ==
[~2021-05-31] VITALS: Ht 165.1 cm; Wt 91.2 kg
[~2021-05-31 06:30] MED LIST changes: +ONDANSETRON HCL4 M2 PO
[2021-05-31 10:02] LABS: HEMOGLOBIN 13.8 gm/dL (12.0-15.0); MCH 27.7 pg (26.0-34.0); MCHC 32.1 g/dL (28.0-37.0); MCV 86.1 fL (80.0-100.0); RDW 14.8 % (10.5-14.5)
[2021-05-31 10:10] LABS: CALCIUM 8.7 mg/dL (8.5-10.1); CREATININE 1.4 mg/dL (0.6-1.0); POTASSIUM 3.5 mmol/L (3.5-5.1)
[2021-05-31 10:17] LABS: ALBUMIN 3.7 g/dL (3.4-5.0); TOTAL BILIRUBIN 0.2 mg/dL (0.2-1.0); TOTAL PROTEIN 8.5 g/dL (6.4-8.2)
[2021-05-31] MEDS ORDERED: OBREDON 2.5-20118 ML PO (10:31)
[2021-05-31 11:04] VITALS: BP 169/96
== END 2021-05-31 12:23 | disposition home or self-care (01) ==
LOC: ER 06:30
PROVIDERS: Emergency Medicine
DX: U07.1 COVID-19 (principal); M79.18 Myalgia, other site; R50.9 Fever, unspecified; E10.9 Type 1 diabetes mellitus without complications; I10 Essential (primary) hypertension; F41.9 Anxiety disorder, unspecified; F32.9 Major depressive disorder, single episode, unspecified; Z79.51 Long term (current) use of inhaled steroids; Z79.899 Other long term (current) drug therapy; Z79.4 Long term (current) use of insulin; Z88.6 Allergy status to analgesic agent; Z88.0 Allergy status to penicillin; Z88.8 Allergy status to other drugs, medicaments and biological substances; Z72.0 Tobacco use

== ENCOUNTER 2021-06-04 20:02 | Emergency (ER) | payer OTHER ==
[~2021-06-04] VITALS: Ht 165.1 cm; Wt 91.2 kg
--- NOTE | ~2021-06-04 | EMS ---
[address] [address] EMS Patient Care Report Name: MARILYN AKBAR Room #: DEP LI Mitchell#: [id number] Admission: 06/04/21 Attend Phys: Discharge: 06/05/21 Date of : 71 Report #: [id number] THIS REPORT FOR: //name// Report Transmitted: 06/05/2021 09:42 EMS Care Summary [facility], [place] Incident [id number] @ 06/04/2021 19:22 Incident Location [address] [place] [address] Patient MARILYN AKBAR Female, 46 Years 1975 Patient Address [id number] [place], [place] [address] [place], [place] [id number] Patient History Other,Asthma,Behavioral/Psychiatric Disorder,Diabetes,Hypertension (HTN),Stroke/CVA,TIA,Cardiac - Stent,Type 2 Diabetes,Novel Coronavirus (COVID-19), Patient Allergies Aspirin,Penicillin allergy,Tramadol, Patient Medications Metformin, Carvedilol, Lisinopril, Insulin, Albuterol, Percocet, Coreg, Metoprolol, Xanax, Trulicity, Chief Complaint Shortness of breath Disposition Transported No Lights/[place] Dispatch Reason Breathing Problem Transported To [address] [address] EMS Patient Care Report Name: MARILYN AKBAR Room #: DEP Silver#: [id number] Admission: 06/04/21 Attend Phys: Discharge: 06/05/21 Date of : 71 Report #: [id number] Narrative Arrived on scene of a Covid positive patient. Scene delays due to applying Covid-19 PPE. I entered the apartment to find the patient laying on a bed GCS15, patient stated in complete sentences she was having a hard time breathing and feeling very weak. Patient stated she was Covid-19 positive. Patient was assisted in walking out of her apartment to the cot. Once outside on the cot, room air SPO2 obtained showing her at 86% using the portable pulse oximeter. Expiratory wheezing noted on auscultation. Patient was given one nebulized albuterol treatment, which raised her SPO2 to 99%. Upon completion of the nebulizer treatment, patient was loaded into the ambulance. Patient transported and transferred to receiving facility without further change in patient condition. Initial Vitals @19:40SpO2: 86, @19:47SpO2: 99, @19:51P: 83,R: 18,BP: 150/106,Pain: 0/10,GCS: 15,SpO2: 91,Revised Trauma: 12, @19:49P: 90,R: 20,BP: 151/76,Pain: 0/10,GCS: 15,SpO2: 91,Revised Trauma: 12, Assessments @19:34MENTAL:Event Oriented,Time Oriented,Place Oriented,Person Oriented,SKIN:Hot,Diaphoresis,HEENT:Eyes: Right: Blind,Eyes: Left: Blind,Head/Face: No Abnormalities,Neck/Airway: No Abnormalities,LUNG SOUNDS:General: No Abnormalities,Left Upper: No Abnormalities,Right Upper: No Abnormalities,Left Lower: No Abnormalities,Right Lower: No Abnormalities,ABDOMEN:General: No Abnormalities,Left Upper: No Abnormalities,Right Upper: No Abnormalities,Left Lower: No Abnormalities,Right Lower: No Abnormalities,PELVIS//GI:No Abnormalities,EXTREMITIES:Left Arm: No Abnormalities,Right Arm: No Abnormalities,Left Leg: No Abnormalities,Right Leg: No Abnormalities,PULSE:NEURO:No Abnormalities,@19:49MENTAL:SKIN:HEENT:LUNG SOUNDS:ABDOMEN:PELVIS//GI:EXTREMITIES:PULSE:NEURO: Impression COVID-19 - Confirmed by testing Procedures @19:34ALS AssessmentResponse: UnchangedSucceeded@19:40Albuterol - 2.5 Milligrams (mg) - NebulizedResponse: Improved Timeline 19:20,Call Received 19:20,Dispatch Notified 19:22,Dispatched 19:23,En Route 19:29,On Scene 19:34,At Patient [address] [address] EMS Patient Care Report Name: MARILYN AKBAR Room #: DEP LI Mitchell#: [id number] Admission: 06/04/21 Attend Phys: Discharge: 06/05/21 Date of : 71 Report #: [id number] 19:34,ALS Assessment,Response: UnchangedSucceeded, 19:40,BP: / M,PULSE: ,RR: R,SPO2: 86 Ox,ETCO2: ,BG: ,PAIN: ,GCS: , 19:40,Albuterol - 2.5 Milligrams (mg) - Nebulized,Response: Improved 19:46,Depart Scene 19:47,BP: / M,PULSE: ,RR: R,SPO2: 99 Ox,ETCO2: ,BG: ,PAIN: ,GCS: , 19:49,BP: 151/76 M,PULSE: 90,RR: 20 R,SPO2: 91 Ox,ETCO2: ,BG: ,PAIN: 0,GCS: 15, 19:51,BP: 150/106 M,PULSE: 83,RR: 18 R,SPO2: 91 Ox,ETCO2: ,BG: ,PAIN: 0,GCS: 15, 19:56,At Destination 20:08,Call Closed Disclaimer v1.1 Copyright 2020 Location This EMS Care Summary contains data elements from the applicable legal record (which may be displayed differently). It is designed to provide pertinent information for the following purposes: continuity of care, clinical quality, and state data reporting. The complete legal record is available to ED staff and administrators of the receiving hospital in [employer]'s Patient Tracker. All data is provided "as is."
[~2021-06-04 20:02] MED LIST changes: +OBREDON 2.5-20118 ML PO
[2021-06-04 20:48] LABS: ABSOLUTE NEUTROPHILS 1.2 thou/uL (1.4-8.2); BASOPHILS 0.9 % (0.0-2.0); EOSINOPHILS 0.1 % (0.0-3.0); HEMOGLOBIN 13.1 gm/dL (12.0-15.0); LYMPHOCYTES 51.5 % (24.0-44.0); MCH 27.5 pg (26.0-34.0); MCHC 32.8 g/dL (28.0-37.0); MCV 83.9 fL (80.0-100.0); PLATELET COUNT 129 thou/uL (150-400); POLYS 32.5 % (36.0-66.0); RBC 4.77 mil/uL (4.20-5.00); RDW 14.3 % (10.5-14.5); WBC 3.7 thou/uL (4.0-11.0)
[2021-06-04 20:52] LABS: ANION GAP 9 mmol/L (7-16); BUN 15 mg/dL (7-18); CALCIUM 8.5 mg/dL (8.5-10.1); CHLORIDE 102 mmol/L (98-107); CO2 26 mmol/L (21-32); CREATININE 1.4 mg/dL (0.6-1.0); GLUCOSE 96 mg/dL (74-106); POTASSIUM 3.4 mmol/L (3.5-5.1); SODIUM 137 mmol/L (136-145)
[2021-06-04 21:01] LABS: ALBUMIN 3.5 g/dL (3.4-5.0); SGOT 28 U/L (15-37); SGPT 20 U/L (14-59); TOTAL BILIRUBIN 0.4 mg/dL (0.2-1.0); TOTAL PROTEIN 8.1 g/dL (6.4-8.2); TROPONIN-I <0.06 ng/mL (<0.06)
[2021-06-04 21:20] LABS: URINE BILIRUBIN NEGATIVE (Negative); URINE BLOOD NEGATIVE (Negative); URINE CLARITY CLEAR; URINE COLOR YELLOW; URINE GLUCOSE-RANDOM* 2+ (Negative); URINE KETONES 1+ (Negative); URINE LEUKOCYTES-REFLEX NEGATIVE (Negative); URINE NITRITE-REFLEX NEGATIVE (Negative); URINE PROTEIN (DIPSTICK) 2+ (Negative); URINE SPECIFIC GRAVITY >= 1.030 (1.005-1.035)
[2021-06-04 21:32] LABS: CASTS None Seen /LPF (None Seen); MUCUS 4-6 Moderate strn/LPF (None Seen); SQUAMOUS 4-10 Moderate /LPF (0-3)
[2021-06-04 21:33] LABS: URINE WBC-REFLEX 0-5 Rare /HPF (0-5)
[2021-06-04 21:34] LABS: BACTERIA-REFLEX 1-9 Few /HPF (None Seen); CRYSTALS None Seen /LPF (None Seen); URINE RBC None Seen /HPF (NONE SEEN)
[2021-06-04] MEDS ORDERED: ZOFRAN ODT4 MG PO (21:51)
[2021-06-05 00:16] VITALS: BP 139/59
--- NOTE | 2021-06-05 07:16 | EKG ---
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 <ELECTRONICALLY SIGNED> By: Kervin Bingham MD, [facility] 06/05/21 0716 55 55 Kervin Bingham MD, [facility] /EPI
== END 2021-06-05 00:19 | disposition home or self-care (01) ==
LOC: ER 20:02
PROVIDERS: Emergency Medicine
DX: U07.1 COVID-19 (principal); J12.82 Pneumonia due to coronavirus disease 2019; R11.2 Nausea with vomiting, unspecified; E10.9 Type 1 diabetes mellitus without complications; I10 Essential (primary) hypertension; F41.9 Anxiety disorder, unspecified; F32.9 Major depressive disorder, single episode, unspecified; Z79.899 Other long term (current) drug therapy; Z88.6 Allergy status to analgesic agent; Z88.1 Allergy status to other antibiotic agents; Z88.0 Allergy status to penicillin

== ENCOUNTER 2021-09-02 11:28 | Emergency (ER) | payer OTHER ==
[~2021-09-02] VITALS: Ht 162.6 cm; Wt 105.2 kg
[~2021-09-02 11:28] MED LIST changes: +ZOFRAN ODT4 MG PO
[2021-09-02 11:34] VITALS: BP 169/101
[2021-09-02] MEDS ORDERED: TESSALON PERLE100 MG PO (11:42)
== END 2021-09-02 11:34 | disposition home or self-care (01) ==
LOC: ER 11:28
DX: J06.9 Acute upper respiratory infection, unspecified (principal); E10.9 Type 1 diabetes mellitus without complications; I10 Essential (primary) hypertension; F41.9 Anxiety disorder, unspecified; F32.9 Major depressive disorder, single episode, unspecified; Z79.899 Other long term (current) drug therapy; Z88.6 Allergy status to analgesic agent; Z88.0 Allergy status to penicillin; Z88.5 Allergy status to narcotic agent; Z77.22 Contact with and (suspected) exposure to environmental tobacco smoke (acute) (chronic)

== ENCOUNTER 2021-09-04 14:58 | Emergency (ER) | payer OTHER ==
[~2021-09-04] VITALS: Ht 162.6 cm; Wt 105.2 kg
[2021-09-04 14:58] VITALS: BP 165/104
== END 2021-09-04 17:21 | disposition home or self-care (01) ==
LOC: ER 14:58
DX: J02.9 Acute pharyngitis, unspecified (principal); I10 Essential (primary) hypertension; E11.9 Type 2 diabetes mellitus without complications; F41.9 Anxiety disorder, unspecified; F32.9 Major depressive disorder, single episode, unspecified; Z79.51 Long term (current) use of inhaled steroids; Z79.4 Long term (current) use of insulin; Z79.1 Long term (current) use of non-steroidal anti-inflammatories (NSAID); Z79.891 Long term (current) use of opiate analgesic; Z79.899 Other long term (current) drug therapy; Z77.22 Contact with and (suspected) exposure to environmental tobacco smoke (acute) (chronic); Z88.8 Allergy status to other drugs, medicaments and biological substances; Z88.0 Allergy status to penicillin; Z88.5 Allergy status to narcotic agent; Z88.6 Allergy status to analgesic agent